=== PATIENT | female | born 1960 | race American Indian/Alaskan Native ===

== ENCOUNTER 2017-03-24 08:54 | Outpatient (CLI) | payer OTHER ==
[2017-03-24] MEDS ORDERED: PROVENTIL IH ONE (09:53)
== END 2017-03-24 08:55 | disposition home or self-care (01) ==
LOC: PF 08:54
PROVIDERS: ATTEND Internal Medicine
DX: I10 Essential (primary) hypertension (principal); E03.9 Hypothyroidism, unspecified; K21.9 Gastro-esophageal reflux disease without esophagitis; R01.1 Cardiac murmur, unspecified; T78.40XA Allergy, unspecified, initial encounter; X58.XXXA Exposure to other specified factors, initial encounter
CPT/HCPCS: 94060; 94640